=== PATIENT | male | born 1970 | race Caucasian/White ===

== ENCOUNTER 2016-12-17 03:55 | Emergency (ER) | payer OTHER ==
[~2016-12-17] VITALS: Ht 182.9 cm; Wt 112.0 kg
[2016-12-17 03:57] VITALS: BP 137/93; PULSE 90; RESP 16; TEMP 98; O2SAT 96
[2016-12-17] MEDS ORDERED: PEDICHW PO (04:21)
[2016-12-17 04:22] VITALS: BP 147/87; PULSE 78; RESP 18; O2SAT 95
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
[2016-12-17] MEDS ORDERED: NAPR500T PO ×2 (06:07→06:08)
== END 2016-12-17 06:18 | disposition home or self-care (01) ==
LOC: NEPE 03:55
DX: M25.561 Pain in right knee (principal); S50.312A Abrasion of left elbow, initial encounter; S50.311A Abrasion of right elbow, initial encounter; S90.812A Abrasion, left foot, initial encounter; S90.811A Abrasion, right foot, initial encounter; V03.00XA Pedestrian on foot injured in collision with car, pick-up truck or van in nontraffic accident, initial encounter; Y93.89 Activity, other specified; Y92.488 Other paved roadways as the place of occurrence of the external cause
CPT/HCPCS: 71010; 72170; 73564; 73610; 99284; E0113; L1830